=== PATIENT | female | born 1970 | race Asian ===

== ENCOUNTER 2016-12-09 20:52 | Inpatient (IN) | payer MEDICAID ==
[~2016-12-09] VITALS: Ht 154.9 cm; Wt 49.0 kg
[2016-12-09 20:56] VITALS: BP_SYST 145
[2016-12-09] MEDS ORDERED: MORPHINE 4 MG/ML INJ. SYRINGE IVP ONE ×2 (21:15→23:30)
[2016-12-09] MEDS ORDERED: ONDANSETRON HCL 4 MG/2 ML VIAL IVP ONE (21:15)
[2016-12-09 21:20] LABS: BILIRUBIN,URINE NEGATIVE (NEGATIVE); BLOOD, URINE NEGATIVE (NEGATIVE); CLARITY/URINE CLEAR (CLEAR); COLOR,URINE YELLOW (YELLOW); GLUCOSE,URINE NEGATIVE (NEGATIVE); KETONES,URINE 1+ (NEGATIVE); LEUKOCYTE ESTERASE ,URINE NEGATIVE (NEGATIVE); NITRITE, URINE NEGATIVE (NEGATIVE); PROTEIN URINE NEGATIVE (NEGATIVE); UROBILINOGEN,URINE 0.2 (0.2-1.0)
[2016-12-09 21:34] LABS: BASOPHILS % (AUTO) 0.2 % (0.0-2.0); EOSINOPHILS % (AUTO) 0.1 % (0.0-4.0); HEMATOCRIT 37.7 % (36-48); HEMOGLOBIN 12.2 g/dL (12.0-16.0); LYMPHOCYTES # (AUTO) 1.1 K/uL (1.0-5.5); LYMPHOCYTES % (AUTO) 9.1 % (20.5-51.5); MEAN CORPUSCULAR HEMOGLOBIN 28 pg (27-31); MEAN CORPUSCULAR HGB CONC 32 % (32-36); MEAN CORPUSCULAR VOLUME 86 fL (79.0-98.0); MONOCYTES # (AUTO) 0.2 K/uL (0.0-1.0); MONOCYTES % (AUTO) 1.8 % (1.7-9.3); NEUTROPHILS # (AUTO) 11.1 K/uL (1.8-7.7); NEUTROPHILS % (AUTO) 88.8 % (40.0-70.0); PLATELET COUNT (AUTO) 276 K/uL (130-430); RED BLOOD CELL COUNT(AUTO) 4.41 MIL/uL (4.2-6.2); RED CELL DISTRIBUTION WIDTH 14.1 % (9.0-15.0); WHITE BLOOD COUNT (AUTO) 12.4 K/uL (4.8-10.8)
[2016-12-09 21:46] LABS: CREATININE 0.67 mg/dL (0.55-1.30); POTASSIUM 3.8 mmol/L (3.5-5.1)
[2016-12-09 21:49] LABS: ALBUMIN 4.1 g/dL (3.4-4.8); PROTHROMBIN TIME 10.3 SECS (9.5-12.5); TOTAL BILIRUBIN 0.5 mg/dL (0.0-1.0)
[2016-12-09] MEDS ORDERED: IOHEXOL 100 ML IV ONE (22:15)
[2016-12-09] MEDS ORDERED: metroNIDAZOLE 500 mg/NS 100 ML IV ONE (23:30)
[2016-12-09] MEDS ORDERED: PIPERACILLIN/TAZO 4.5 GM in NS 100 ML IV ONE (23:30)
[2016-12-09] MEDS ORDERED: PIPERACILLIN/TAZOBACTAM 4.5 GM/VIAL (ZOSYN) IV ONE (23:33)
[2016-12-09] MEDS ORDERED: ACETAMINOPHEN 325 MG TABLET PO PRN (23:45)
[2016-12-09] MEDS ORDERED: MORPHINE 2 MG/ML INJ. SYRINGE IVP PRN (23:45)
[2016-12-10] VITALS (7 sets, daily range): BP systolic 109–135
[2016-12-10] MEDS ORDERED: BISACODYL 10 MG/SUPPOSITORY RC PRN
[2016-12-10] MEDS ORDERED: LORazepam 2 MG/ML VIAL IVP PRN
[2016-12-10] MEDS ORDERED: SIMETHICONE 80 MG TAB.CHEW PO PRN
[2016-12-10] MEDS ORDERED: POTASSIUM CHLORIDE 20 MEQ TAB.PRT.SR PO PRN
[2016-12-10 00:51] LABS: FREE T4 (FREE THYROXINE) 0.7 ng/dL (0.6-1.6); THYROID STIMULATING HORMONE 0.66 uIu/mL (0.34-4.82)
[2016-12-10] MEDS: NACL 0.9% 1,000 ML IV SCH ×3 (00:54→23:58)
[2016-12-10] MEDS: ZOLPIDEM TARTRATE 5 MG TABLET PO PRN (02:12)
[2016-12-10] MEDS: DOCUSATE SODIUM 100 MG CAPSULE PO SCH ×2 (08:50→20:14)
[2016-12-10] MEDS ORDERED: MAGNESIUM CITRATE 300 ML ORAL SOLUTION PO ONE (11:15)
[2016-12-10] MEDS: PIPERACILLIN/TAZO 3.375/DEX-IS 50 ML IV SCH ×3 (12:30→23:58)
[2016-12-10] MEDS: MORPHINE 2 MG/ML INJ. SYRINGE IVP PRN ×2 (15:53→20:18)
[2016-12-10] MEDS: LACTULOSE 20 GM/30 ML UDC PO SCH (20:14)
[2016-12-11] MEDS: MORPHINE 2 MG/ML INJ. SYRINGE IVP PRN ×4 (00:10→22:37)
[2016-12-11 00:30] VITALS: BP_SYST 150
[2016-12-11 04:13] VITALS: BP_SYST 119; BP_SYST 137
[2016-12-11] MEDS: PIPERACILLIN/TAZO 3.375/DEX-IS 50 ML IV SCH ×4 (05:45→23:30)
[2016-12-11 06:51] LABS: BASOPHILS % (AUTO) 0.4 % (0.0-2.0); CALCIUM 7.1 mg/dL (8.4-11.0); CREATININE 0.7 mg/dL (0.55-1.30); EOSINOPHILS # (AUTO) 0.1 K/uL (0.0-0.4); EOSINOPHILS % (AUTO) 2.1 % (0.0-4.0); HEMATOCRIT 28.7 % (36-48); HEMOGLOBIN 9.3 g/dL (12.0-16.0); LYMPHOCYTES # (AUTO) 2.1 K/uL (1.0-5.5); LYMPHOCYTES % (AUTO) 32.2 % (20.5-51.5); MEAN CORPUSCULAR HEMOGLOBIN 28 pg (27-31); MEAN CORPUSCULAR HGB CONC 32 % (32-36); MEAN CORPUSCULAR VOLUME 85 fL (79.0-98.0); MONOCYTES # (AUTO) 0.3 K/uL (0.0-1.0); MONOCYTES % (AUTO) 4.3 % (1.7-9.3); NEUTROPHILS # (AUTO) 4.1 K/uL (1.8-7.7); PHOSPHORUS 3.6 mg/dL (2.7-4.5); PLATELET COUNT (AUTO) 228 K/uL (130-430); POTASSIUM 3.2 mmol/L (3.5-5.1); RED BLOOD CELL COUNT(AUTO) 3.38 MIL/uL (4.2-6.2); RED CELL DISTRIBUTION WIDTH 14.1 % (9.0-15.0); WHITE BLOOD COUNT (AUTO) 6.6 K/uL (4.8-10.8)
[2016-12-11 08:00] VITALS: BP_SYST 127
[2016-12-11] MEDS: LACTULOSE 20 GM/30 ML UDC PO SCH ×2 (09:04→20:12)
[2016-12-11] MEDS: DOCUSATE SODIUM 100 MG CAPSULE PO SCH ×2 (09:04→20:12)
[2016-12-11 10:17] LABS: T4 (THYROXINE) 6.6 ug/dL (4.5-12.0)
[2016-12-11 10:17] LABS: CA 27.29 9.1 U/mL (0.0-38.6)
[2016-12-11 12:05] VITALS: BP_SYST 119
[2016-12-11] MEDS: SIMETHICONE 80 MG TAB.CHEW PO SCH ×2 (15:10→20:12)
[2016-12-11 16:00] VITALS: BP_SYST 124
[2016-12-11] MEDS ORDERED: BISACODYL 5 MG TABLET.DR (DULCOLAX) PO ONE (17:00)
[2016-12-11] MEDS: ONDANSETRON HCL 4 MG/2 ML VIAL IVP PRN ×2 (17:16→22:37)
[2016-12-11] MEDS ORDERED: GOLYTELY / COLYTE SOLUTION 4 LITERS PO ONE (18:00)
[2016-12-11 20:00] VITALS: BP_SYST 143
[2016-12-11] MEDS: NACL 0.9% 1,000 ML IV SCH (20:17)
[2016-12-12 00:37] VITALS: BP_SYST 124
[2016-12-12 04:59] VITALS: BP_SYST 137
[2016-12-12] MEDS: PIPERACILLIN/TAZO 3.375/DEX-IS 50 ML IV SCH ×4 (05:14→23:41)
[2016-12-12 06:44] LABS: PROTHROMBIN TIME 10.3 SECS (9.5-12.5)
[2016-12-12 07:29] LABS: BASOPHILS % (AUTO) 0.6 % (0.0-2.0); EOSINOPHILS # (AUTO) 0.1 K/uL (0.0-0.4); EOSINOPHILS % (AUTO) 2.6 % (0.0-4.0); HEMATOCRIT 27.4 % (36-48); HEMOGLOBIN 8.9 g/dL (12.0-16.0); LYMPHOCYTES # (AUTO) 2.2 K/uL (1.0-5.5); LYMPHOCYTES % (AUTO) 42.8 % (20.5-51.5); MEAN CORPUSCULAR HEMOGLOBIN 28 pg (27-31); MEAN CORPUSCULAR HGB CONC 33 % (32-36); MEAN CORPUSCULAR VOLUME 86 fL (79.0-98.0); MONOCYTES # (AUTO) 0.3 K/uL (0.0-1.0); MONOCYTES % (AUTO) 5.7 % (1.7-9.3); NEUTROPHILS # (AUTO) 2.5 K/uL (1.8-7.7); NEUTROPHILS % (AUTO) 48.3 % (40.0-70.0); PLATELET COUNT (AUTO) 222 K/uL (130-430); RED CELL DISTRIBUTION WIDTH 14.2 % (9.0-15.0); WHITE BLOOD COUNT (AUTO) 5.1 K/uL (4.8-10.8)
[2016-12-12 08:00] VITALS: BP_SYST 140
[2016-12-12 08:08] LABS: ALBUMIN 2.9 g/dL (3.4-4.8); CALCIUM 7.4 mg/dL (8.4-11.0); CREATININE 0.68 mg/dL (0.55-1.30); POTASSIUM 3.4 mmol/L (3.5-5.1); TOTAL BILIRUBIN 0.6 mg/dL (0.0-1.0)
[2016-12-12] MEDS: SIMETHICONE 80 MG TAB.CHEW PO SCH ×3 (08:23→20:08)
[2016-12-12] MEDS: LACTULOSE 20 GM/30 ML UDC PO SCH ×2 (08:26→20:08)
[2016-12-12] MEDS: DOCUSATE SODIUM 100 MG CAPSULE PO SCH ×2 (08:26→20:08)
[2016-12-12] MEDS: MORPHINE 2 MG/ML INJ. SYRINGE IVP PRN ×2 (10:16→20:06)
[2016-12-12] MEDS: ONDANSETRON HCL 4 MG/2 ML VIAL IVP PRN ×2 (10:18→20:13)
[2016-12-12] MEDS: NACL 0.9% 1,000 ML IV SCH (12:00)
[2016-12-12] MEDS ORDERED: SIMETHICONE 40 MG/0.6 ML ML ONE (12:51)
[2016-12-12 12:59] VITALS: BP_SYST 144
[2016-12-12] MEDS: MIDAZOLAM HCL 5 MG/5 ML VIAL ONE ×3 (13:00→15:02)
[2016-12-12] MEDS: MEPERIDINE HCL/PF 100 MG/ML AMP ONE ×2 (13:01→14:52)
[2016-12-12 16:22] VITALS: BP_SYST 128
[2016-12-12 22:46] LABS: HEMOGLOBIN A1C 5.5 % (4.8-5.6)
[2016-12-12] MEDS: ZOLPIDEM TARTRATE 5 MG TABLET PO PRN (23:40)
[2016-12-13] VITALS (8 sets, daily range): BP systolic 130–166
[2016-12-13] MEDS: PIPERACILLIN/TAZO 3.375/DEX-IS 50 ML IV SCH ×2 (05:18→12:34)
[2016-12-13] MEDS: MORPHINE 2 MG/ML INJ. SYRINGE IVP PRN (05:18)
[2016-12-13] MEDS: NACL 0.9% 1,000 ML IV SCH (05:21)
[2016-12-13 06:07] LABS: CEA 3.5 ng/mL (0.0-4.7)
[2016-12-13 06:28] LABS: BASOPHILS % (AUTO) 0.4 % (0.0-2.0); EOSINOPHILS # (AUTO) 0.2 K/uL (0.0-0.4); EOSINOPHILS % (AUTO) 3.2 % (0.0-4.0); HEMOGLOBIN 9.4 g/dL (12.0-16.0); LYMPHOCYTES # (AUTO) 1.9 K/uL (1.0-5.5); LYMPHOCYTES % (AUTO) 31.3 % (20.5-51.5); MEAN CORPUSCULAR HEMOGLOBIN 28 pg (27-31); MEAN CORPUSCULAR HGB CONC 32 % (32-36); MEAN CORPUSCULAR VOLUME 86 fL (79.0-98.0); MONOCYTES # (AUTO) 0.3 K/uL (0.0-1.0); NEUTROPHILS # (AUTO) 3.7 K/uL (1.8-7.7); NEUTROPHILS % (AUTO) 60.1 % (40.0-70.0); PLATELET COUNT (AUTO) 250 K/uL (130-430); RED BLOOD CELL COUNT(AUTO) 3.38 MIL/uL (4.2-6.2); WHITE BLOOD COUNT (AUTO) 6.1 K/uL (4.8-10.8)
[2016-12-13 06:43] LABS: CALCIUM 7.6 mg/dL (8.4-11.0); CREATININE 0.73 mg/dL (0.55-1.30); PHOSPHORUS 4.7 mg/dL (2.7-4.5); POTASSIUM 3.3 mmol/L (3.5-5.1)
[2016-12-13 07:30] LABS: AFP, TUMOR MARKER 3.3 ng/mL (0.0-8.3)
[2016-12-13] MEDS: SIMETHICONE 80 MG TAB.CHEW PO SCH ×2 (09:00→15:50)
[2016-12-13] MEDS: LACTULOSE 20 GM/30 ML UDC PO SCH (09:00)
[2016-12-13] MEDS: DOCUSATE SODIUM 100 MG CAPSULE PO SCH (09:00)
[2016-12-13] MEDS ORDERED: POTASSIUM CHLORIDE 40 MEQ, LIDOCAINE JECT 2% PF 100 MG 50 MG in NS 250 ML IV PRN (09:45)
[2016-12-13] MEDS ORDERED: IOHEXOL 100 ML IV ONE (12:51)
== END 2016-12-13 18:45 | disposition home or self-care (01) | DRG 240 ==
LOC: SED 20:52 → STU 23:44 → SMU 12-10 12:16
PROVIDERS: ADMIT Family Medicine; ATTEND Family Medicine
PROC: 0DBK8ZX Excision of Ascending Colon, Via Natural or Artificial Opening Endoscopic, Diagnostic (ICD-10-PCS; principal; 2016-12-12 07:30)
DX: C76.2 Malignant neoplasm of abdomen (principal); K63.3 Ulcer of intestine; R19.00 Intra-abdominal and pelvic swelling, mass and lump, unspecified site; D25.9 Leiomyoma of uterus, unspecified; E87.6 Hypokalemia; R58 Hemorrhage, not elsewhere classified; K57.30 Diverticulosis of large intestine without perforation or abscess without bleeding; K59.09 Other constipation; K64.8 Other hemorrhoids; N83.201 Unspecified ovarian cyst, right side; N83.202 Unspecified ovarian cyst, left side; N80.0 Endometriosis of uterus; Z98.51 Tubal ligation status
CPT/HCPCS: 36415; 45380; 76830-TC; 76857; 80048; 80053; 80061; 81003; 81025; 82105; 82150-TC; 82378; 83036; 83690-TC; 83735-TC; 83880; 84100-TC; 84436; 84439; 84443-TC; 84479; 84703; 85025; 85610-TC; 85730-TC; 86300; 86304; 88305; 96365; 96367; 96375; 96376; 99285; J2175; J2250; J2270; J2405; J2543; J3480; J3490; J7030; J7050; Q9967

== ENCOUNTER 2016-12-20 22:34 | Inpatient (IN) | payer MEDICAID ==
[~2016-12-20] VITALS: Ht 154.9 cm; Wt 51.8 kg
[2016-12-20 22:40] VITALS: BP_SYST 174
[2016-12-20] MEDS ORDERED: NACL 0.9% 1,000 ML IV ONE ×2 (23:03→23:45)
[2016-12-20 23:29] LABS: BASOPHILS # (AUTO) 0.1 K/uL (0.0-0.2); BASOPHILS % (AUTO) 0.7 % (0.0-2.0); EOSINOPHILS # (AUTO) 0.1 K/uL (0.0-0.4); EOSINOPHILS % (AUTO) 0.5 % (0.0-4.0); HEMATOCRIT 45.7 % (36-48); HEMOGLOBIN 14.3 g/dL (12.0-16.0); LYMPHOCYTES # (AUTO) 1.1 K/uL (1.0-5.5); LYMPHOCYTES % (AUTO) 8.2 % (20.5-51.5); MEAN CORPUSCULAR HEMOGLOBIN 27 pg (27-31); MEAN CORPUSCULAR HGB CONC 31 % (32-36); MEAN CORPUSCULAR VOLUME 86 fL (79.0-98.0); MONOCYTES # (AUTO) 0.3 K/uL (0.0-1.0); MONOCYTES % (AUTO) 2.1 % (1.7-9.3); NEUTROPHILS # (AUTO) 11.2 K/uL (1.8-7.7); NEUTROPHILS % (AUTO) 88.5 % (40.0-70.0); PLATELET COUNT (AUTO) 518 K/uL (130-430); RED BLOOD CELL COUNT(AUTO) 5.34 MIL/uL (4.2-6.2); RED CELL DISTRIBUTION WIDTH 14.8 % (9.0-15.0); WHITE BLOOD COUNT (AUTO) 12.8 K/uL (4.8-10.8)
[2016-12-20 23:30] LABS: BILIRUBIN,URINE NEGATIVE (NEGATIVE); BLOOD, URINE NEGATIVE (NEGATIVE); CLARITY/URINE CLEAR (CLEAR); COLOR,URINE YELLOW (YELLOW); GLUCOSE,URINE NEGATIVE (NEGATIVE); KETONES,URINE NEGATIVE (NEGATIVE); LEUKOCYTE ESTERASE ,URINE NEGATIVE (NEGATIVE); NITRITE, URINE NEGATIVE (NEGATIVE); PH,URINE 5.5 (5.0-8.0); PROTEIN URINE NEGATIVE (NEGATIVE); UROBILINOGEN,URINE 0.2 (0.2-1.0)
[2016-12-20 23:41] LABS: CALCIUM 9.3 mg/dL (8.4-11.0); CREATININE 0.74 mg/dL (0.55-1.30); POTASSIUM 3.6 mmol/L (3.5-5.1); PROTHROMBIN TIME 9.9 SECS (9.5-12.5)
[2016-12-20 23:43] LABS: ALBUMIN 4.9 g/dL (3.4-4.8); TOTAL BILIRUBIN 0.6 mg/dL (0.0-1.0)
[2016-12-20] MEDS ORDERED: MORPHINE 4 MG/ML INJ. SYRINGE IVP ONE (23:45)
[2016-12-20] MEDS ORDERED: ONDANSETRON HCL 4 MG/2 ML VIAL IVP ONE (23:45)
[2016-12-21] MEDS ORDERED: SIMETHICONE 80 MG TAB.CHEW PO ONE (01:30)
[2016-12-21] MEDS ORDERED: MORPHINE 2 MG/ML INJ. SYRINGE IVP PRN (02:00)
[2016-12-21] MEDS ORDERED: SIMETHICONE 80 MG TAB.CHEW ONE (02:03)
[2016-12-21] MEDS ORDERED: MORPHINE 2 MG/ML INJ. SYRINGE IVP ONE (02:15)
[2016-12-21 02:47] VITALS: BP_SYST 153
[2016-12-21] MEDS ORDERED: LEVOFLOXACIN 500 MG/D5W 100 ML IV ONE ×2 (03:00→03:58)
[2016-12-21] MEDS ORDERED: metroNIDAZOLE 500 mg/NS 100 ML IV ONE ×2 (03:00→03:57)
[2016-12-21] MEDS: FLU VACC QS 2017-18(36MOS+)/PF 0.5 ML/SYR SYRINGE I.M. PRN (03:39)
[2016-12-21] MEDS ORDERED: CALCIUM CARBONATE 500 MG/ TAB.CHEW PO ONE (04:30)
[2016-12-21] MEDS ORDERED: PANTOPRAZOLE SODIUM 40 MG/VIAL (PROTONIX) IVP ONE (05:00)
[2016-12-21] MEDS: D5NS 1,000 ML IV SCH ×2 (05:15→15:50)
[2016-12-21 06:07] VITALS: BP_SYST 153
[2016-12-21] MEDS: HYDROmorphone 1 MG INJ. 1 MG/ML AMPUL IVP PRN ×2 (10:40→20:55)
[2016-12-21 12:33] VITALS: BP_SYST 160
[2016-12-21] MEDS: metroNIDAZOLE 500 mg/NS 100 ML IV SCH ×2 (13:24→22:41)
[2016-12-21 16:13] VITALS: BP_SYST 115
[2016-12-21 20:00] VITALS: BP_SYST 139
[2016-12-21] MEDS: LEVOFLOXACIN 500 MG/D5W 100 ML IV SCH (20:56)
[2016-12-22 04:00] VITALS: BP_SYST 150
[2016-12-22] MEDS ORDERED: ACETAMINOPHEN 325 MG TABLET ONE (05:15)
[2016-12-22] MEDS ORDERED: ACETAMINOPHEN 325 MG TABLET PO PRN (05:15)
[2016-12-22] MEDS ORDERED: ONDANSETRON HCL 4 MG/2 ML VIAL ONE (05:16)
[2016-12-22] MEDS: HYDROmorphone 1 MG INJ. 1 MG/ML AMPUL IVP PRN ×3 (05:37→21:12)
[2016-12-22] MEDS: ONDANSETRON HCL 4 MG/2 ML VIAL IVP PRN ×3 (05:45→19:29)
[2016-12-22] MEDS: D5NS 1,000 ML IV SCH ×2 (05:54→10:30)
[2016-12-22] MEDS: metroNIDAZOLE 500 mg/NS 100 ML IV SCH ×3 (06:00→22:54)
[2016-12-22 06:51] LABS: INR 1.1 (0.8-1.2); PROTHROMBIN TIME 10.8 SECS (9.5-12.5)
[2016-12-22] MEDS ORDERED: SIMETHICONE 40 MG/0.6 ML ML ONE (06:51)
[2016-12-22] MEDS ORDERED: fentaNYL CITRATE/PF 100 MCG/2 ML AMP ONE (06:51)
[2016-12-22] MEDS ORDERED: MEPERIDINE HCL/PF 100 MG/ML AMP ONE (07:39)
[2016-12-22] MEDS: MIDAZOLAM HCL 5 MG/5 ML VIAL ONE ×2 (07:41→07:46)
[2016-12-22 08:05] VITALS: BP_SYST 135
[2016-12-22] MEDS: PANTOPRAZOLE SODIUM 40 MG/VIAL (PROTONIX) IVP SCH (09:00)
[2016-12-22] MEDS ORDERED: BARIUM SULFATE 135 ML SUSP.RECON (E-Z-HD) PO ONE (09:51)
[2016-12-22 14:45] VITALS: BP_SYST 140
[2016-12-22 18:18] VITALS: BP_SYST 144
[2016-12-22 20:00] VITALS: BP_SYST 147
[2016-12-22] MEDS: LEVOFLOXACIN 500 MG/D5W 100 ML IV SCH (21:11)
[2016-12-22] MEDS: FLU VACC QS 2017-18(36MOS+)/PF 0.5 ML/SYR SYRINGE I.M. PRN (23:10)
[2016-12-23 00:29] VITALS: BP_SYST 144
[2016-12-23 04:02] VITALS: BP_SYST 134
[2016-12-23] MEDS: metroNIDAZOLE 500 mg/NS 100 ML IV SCH ×3 (05:27→22:31)
[2016-12-23 08:45] VITALS: BP_SYST 139
[2016-12-23] MEDS: PANTOPRAZOLE SODIUM 40 MG/VIAL (PROTONIX) IVP SCH (09:12)
[2016-12-23 12:00] VITALS: BP_SYST 134
[2016-12-23 13:13] LABS: BASOPHILS # (AUTO) 0.1 K/uL (0.0-0.2); BASOPHILS % (AUTO) 1.7 % (0.0-2.0); EOSINOPHILS # (AUTO) 0.1 K/uL (0.0-0.4); EOSINOPHILS % (AUTO) 0.9 % (0.0-4.0); HEMATOCRIT 38.9 % (36-48); HEMOGLOBIN 12.3 g/dL (12.0-16.0); LYMPHOCYTES # (AUTO) 1.1 K/uL (1.0-5.5); LYMPHOCYTES % (AUTO) 15.3 % (20.5-51.5); MEAN CORPUSCULAR HEMOGLOBIN 27 pg (27-31); MEAN CORPUSCULAR HGB CONC 32 % (32-36); MEAN CORPUSCULAR VOLUME 85 fL (79.0-98.0); MONOCYTES # (AUTO) 0.4 K/uL (0.0-1.0); MONOCYTES % (AUTO) 5.8 % (1.7-9.3); NEUTROPHILS # (AUTO) 5.5 K/uL (1.8-7.7); NEUTROPHILS % (AUTO) 76.3 % (40.0-70.0); PLATELET COUNT (AUTO) 469 K/uL (130-430); RED BLOOD CELL COUNT(AUTO) 4.56 MIL/uL (4.2-6.2); RED CELL DISTRIBUTION WIDTH 14.9 % (9.0-15.0); WHITE BLOOD COUNT (AUTO) 7.2 K/uL (4.8-10.8)
[2016-12-23 13:32] LABS: CALCIUM 8.2 mg/dL (8.4-11.0); CREATININE 0.63 mg/dL (0.55-1.30)
[2016-12-23 13:36] LABS: ALBUMIN 3.6 g/dL (3.4-4.8); TOTAL BILIRUBIN 0.4 mg/dL (0.0-1.0)
[2016-12-23 13:37] LABS: POTASSIUM 2.7 mmol/L (3.5-5.1)
[2016-12-23] MEDS ORDERED: POTASSIUM CHLORIDE 60 MEQ in NS 500 ML IV ONE (14:00)
[2016-12-23] MEDS: ONDANSETRON HCL 4 MG/2 ML VIAL IVP PRN ×2 (15:46→22:31)
[2016-12-23] MEDS: HYDROmorphone 1 MG INJ. 1 MG/ML AMPUL IVP PRN ×2 (15:47→22:32)
[2016-12-23] MEDS: D5NS 1,000 ML IV SCH ×2 (16:30→18:32)
[2016-12-23 16:50] VITALS: BP_SYST 144
[2016-12-23 20:00] VITALS: BP_SYST 154
[2016-12-23] MEDS: LEVOFLOXACIN 500 MG/D5W 100 ML IV SCH (20:24)
[2016-12-24 00:55] VITALS: BP_SYST 152
[2016-12-24] MEDS: metroNIDAZOLE 500 mg/NS 100 ML IV SCH (05:01)
[2016-12-24] MEDS: D5NS 1,000 ML IV SCH (05:02)
[2016-12-24 06:16] VITALS: BP_SYST 158
[2016-12-24 08:00] VITALS: BP_SYST 143
[2016-12-24] MEDS: PANTOPRAZOLE SODIUM 40 MG/VIAL (PROTONIX) IVP SCH (09:30)
[2016-12-24] MEDS ORDERED: LACT10SO66 PO (11:41)
[2016-12-24] MEDS ORDERED: PRO40 PO (11:41)
[2016-12-24] MEDS ORDERED: IBUP-1480 PO (11:41)
[2016-12-24] MEDS ORDERED: HYDR-4100 PO (11:41)
[2016-12-24 12:59] VITALS: BP_SYST 156
[2016-12-24 13:04] VITALS: BP_SYST 155
== END 2016-12-24 14:00 | disposition home or self-care (01) | DRG 243 ==
LOC: SED 22:34 → SMU 12-21 01:59
PROVIDERS: ADMIT Internal Medicine Hospice and Palliative Medicine; ATTEND Internal Medicine Hospice and Palliative Medicine
PROC: 0DB68ZX Excision of Stomach, Via Natural or Artificial Opening Endoscopic, Diagnostic (ICD-10-PCS; principal; 2016-12-22 07:30)
DX: K20.9 Esophagitis, unspecified (principal); K56.600 Partial intestinal obstruction, unspecified as to cause; R19.00 Intra-abdominal and pelvic swelling, mass and lump, unspecified site; K59.00 Constipation, unspecified; D25.9 Leiomyoma of uterus, unspecified; E28.2 Polycystic ovarian syndrome; Z98.82 Breast implant status; Z98.51 Tubal ligation status; Z79.2 Long term (current) use of antibiotics; Z79.899 Other long term (current) drug therapy
CPT/HCPCS: 36415; 43239; 74249; 76830-TC; 76857; 80053; 81003; 82150-TC; 83690-TC; 85025; 85610-TC; 85730-TC; 87081; 96361; 96374; 96375; 96376; 99285; C9113; J1170; J1956; J2175; J2250; J2270; J2405; J3010; J3480; J3490; J7030; J7040; J7042; J7060; Q2037